=== PATIENT | female | born 1955 | race Caucasian/White ===

== ENCOUNTER 2025-08-15 19:58 | Observation (INO) | payer OTHER, MEDICARE ==
[~2025-08-15] VITALS: Ht 154.9 cm; Wt 61.1 kg
[2025-08-15] MEDS ORDERED: KETOROLAC 30 MG/ML 1 ML VIAL IV PRN (20:55)
[2025-08-16 00:32] VITALS: BP 127/61; TEMP 100.2; O2SAT 98
[2025-08-16] MEDS: UNRESOLVED CLARIFICATION ENTRY XX STA (00:33)
[2025-08-16] MEDS: NS (Normal Saline) 0.9% 1,000 ML IV SCH (00:46)
[2025-08-16 01:12] LABS: PLATELET COUNT, AUTOMATED 219 10^3/uL (150-450)
[2025-08-16 01:38] LABS: APPEARANCE, URINE CLEAR (CLEAR); BACTERIA, URINE AUTO NEGATIVE (NEGATIVE); BILIRUBIN, URINE AUTO NEGATIVE (NEGATIVE); BLOOD, URINE BLOOD 2+ (NEGATIVE); GLUCOSE, URINE (UA) AUTO NEGATIVE (NEGATIVE); KETONE, URINE AUTO NEGATIVE (NEGATIVE); LEUKOCYTE ESTERASE, URINE AUTO TRACE (NEGATIVE); NITRITE, URINE AUTO NEGATIVE (NEGATIVE); PROTEIN, URINE AUTO NEGATIVE (NEGATIVE); RBC, URINE AUTO 5 /HPF (0-3); SPECIFIC GRAVITY URINE AUTO 1.024 (1.002-1.035); SQUAMOUS EPITHELIAL CELL UR AU 1 /HPF (0-6); UROBILINOGEN, URINE AUTO 0.2 mg/dL (0.0-2.0); WBC, URINE AUTO 6 /HPF (0-3)
[2025-08-16 01:39] LABS: CALCIUM LEVEL 8.4 MG/DL (8.3-10.6); CARBON DIOXIDE LEVEL 29.0 MMOL/L (20-31); CHLORIDE LEVEL 104.0 MMOL/L (98-107); CREATININE FOR GFR 0.74 MG/DL (0.55-1.30); GLOMERULAR FILTRATION RATE 88.1 (>45); PHOSPHORUS LEVEL 3.4 MG/DL (2.4-5.1); POTASSIUM SERUM 3.8 MMOL/L (3.5-5.1); SODIUM LEVEL 141.0 MMOL/L (136-145)
[2025-08-16] MEDS ORDERED: ONDANSETRON 4MG/2ML VIAL IV PRN ×2 (02:00→09:05)
[2025-08-16] MEDS: cefTRIAXone SOD 2 GM in DEXTROSE 5% (D5W) ADV/MINI-BAG 50 ML IV ONE (02:25)
[2025-08-16] MEDS ORDERED: NAPR-837 PO (02:31)
[2025-08-16] MEDS ORDERED: NAPR-832 PO (02:31)
[2025-08-16] MEDS ORDERED: ASPI81TA26 PO (02:31)
[2025-08-16] MEDS ORDERED: ATOR1TAB21 PO (02:31)
[2025-08-16] MEDS ORDERED: LEVO75TA4 PO (02:31)
[2025-08-16] MEDS ORDERED: OMEP40CA5 PO (02:31)
[2025-08-16] MEDS ORDERED: MULTCHW14 PO (02:32)
[2025-08-16] MEDS ORDERED: VIT1TAB.8 PO (02:32)
[2025-08-16] MEDS ORDERED: HOME MED LIST COMPLETE! XX SCH (02:35)
[2025-08-16 04:36] VITALS: BP 142/66; TEMP 98.3; O2SAT 98
[2025-08-16] MEDS ORDERED: MIDAZOLAM INJ 2 MG/2 ML VIAL As Ordered ONE (07:25)
[2025-08-16] MEDS ORDERED: LIDOCAINE 2% 100 MG/5 ML SDV (FOR ANES.) As Ordered ONE (07:27)
[2025-08-16] MEDS ORDERED: dexmedeTOMIDine (4 MCG/ML) 200 MCG/50 ML BTL As Ordered ONE (07:28)
[2025-08-16] MEDS ORDERED: ONDANSETRON 4MG/2ML VIAL As Ordered ONE (07:28)
[2025-08-16 07:32] LABS: C REACTIVE PROTEIN QUANTITATIV 0.72 MG/DL (<1.0); CALCIUM LEVEL 8.0 MG/DL (8.3-10.6); CARBON DIOXIDE LEVEL 28 MMOL/L (20-31); CHLORIDE LEVEL 107 MMOL/L (98-107); CREATININE FOR GFR 0.66 MG/DL (0.55-1.30); GLOMERULAR FILTRATION RATE > 90.0 (>45); POTASSIUM SERUM 3.9 MMOL/L (3.5-5.1); SODIUM LEVEL 143 MMOL/L (136-145)
[2025-08-16] MEDS: SCOPOLAMINE 1MG TRANSDERMAL PATCH As Ordered ONE (08:24)
[2025-08-16] MEDS ORDERED: dexAMETHasone 4 MG/ML 1 ML VIAL As Ordered ONE (08:25)
[2025-08-16] MEDS: ISOVUE-300 61% 100 ML VIAL As Ordered ONE (08:34)
[2025-08-16] MEDS: LIDOCAINE 2% 5 ML JELLY UROJET As Ordered ONE (08:36)
[2025-08-16] MEDS ORDERED: HYDROMORPHONE HCL 0.5 MG/0.5 ML SYRINGE IV PRN (09:05)
[2025-08-16 09:30] VITALS: BP 134/89; TEMP 97.9; O2SAT 98
[2025-08-16 10:04] VITALS: BP 132/64; TEMP 97.8; O2SAT 96
== END 2025-08-16 11:56 | disposition home or self-care (01) ==
LOC: M MSPAV 08-16 00:20 → INTOOBSV 08-16 00:20
PROVIDERS: ADMIT Student in an Organized Health Care Education/Training Program; ATTEND Internal Medicine
DX: N13.2 Hydronephrosis with renal and ureteral calculous obstruction (principal); I10 Essential (primary) hypertension; K21.9 Gastro-esophageal reflux disease without esophagitis; E78.5 Hyperlipidemia, unspecified; E03.9 Hypothyroidism, unspecified; Z86.73 Personal history of transient ischemic attack (TIA), and cerebral infarction without residual deficits; K75.81 Nonalcoholic steatohepatitis (NASH)
CPT/HCPCS: 36415; 52332; 74420; 80048; 81001; 84100; 84145; 85027; 86140; 87086; 96361; 96365; C1769; C2617; J0696; J1100; J2250; J2405; Q9967